=== PATIENT | female | born 1985 | race Hispanic/Latino ===

== ENCOUNTER 2018-04-22 14:54 | Emergency (ER) | payer OTHER ==
[~2018-04-22] VITALS: Ht 160 cm; Wt 65.8 kg
[2018-04-22] MEDS ORDERED: KETOROLAC TROMETHAMINE 30 MG/ML VIAL IV STA (15:51)
[2018-04-22 16:18] LABS: BILIRUBIN,URINE NEGATIVE (NEGATIVE); CLARITY,URINE CLEAR (CLEAR); COLOR,URINE YELLOW (YELLOW); KETONES,URINE NEGATIVE (NEGATIVE); LEUKOCYTE ESTERASE ,URINE NEGATIVE (NEGATIVE); NITRITE,URINE NEGATIVE (NEGATIVE); PROTEIN,URINE DIPSTICK NEGATIVE (NEGATIVE); URINE UROBILINOGEN 0.2 mg/dL (0.2 - 1)
[2018-04-22 16:25] LABS: EPITHELIAL CELLS,URINE FEW /LPF; WBC,URINE (MAN) 0-5 /HPF (0-5)
--- NOTE | 2018-04-22 16:32 | Diagnostic Imaging Report ---
EXAMINATION: CHEST 2 VIEWS INDICATION: Migraine. Cough COMPARISON: None FINDINGS: TUBES and LINES: None. LUNGS: Lungs are well inflated. Lungs are clear. There is no evidence of pneumonia or pulmonary edema. PLEURA: No pleural effusion or pneumothorax. HEART AND MEDIASTINUM: The cardiomediastinal silhouette is unremarkable. BONES AND SOFT TISSUES: No acute osseous lesion. Soft tissues are unremarkable. UPPER ABDOMEN: No free air under the diaphragm. IMPRESSION: No acute thoracic abnormality. Signed by: Dr. Shawn Grover M.D. on 04/22/2018 4:29 PM
[2018-04-22 16:35] LABS: BASOPHILS % 0.4 % (0.0-1.0); EOSINOPHILS # (AUTO) 0.3 (0.0-0.4); EOSINOPHILS % 3.8 % (0.0-6.0); HEMATOCRIT 41.5 % (34.2-44.1); HEMOGLOBIN 13.6 g/dL (12.0-16.0); LYMPHOCYTES # (AUTO) 2.1 (1.0-3.2); LYMPHOCYTES % 28.9 % (18.0-39.1); MEAN CORPUSCULAR HEMOGLOBIN 28.3 pg (28-32); MEAN CORPUSCULAR HGB CONC 32.8 g/dL (31-35); MEAN CORPUSCULAR VOLUME 86.3 fL (81-99); MONOCYTES # (AUTO) 0.4 (0.2-0.8); MONOCYTES % 5.9 % (4.4-11.3); NEUTROPHILS # (AUTO) 4.3 (2.1-6.9); NEUTROPHILS % 60.9 % (38.7-80.0); PLATELET COUNT 294 x10e3/uL (140-360); RED BLOOD COUNT 4.81 x10e6/uL (3.6-5.1); RED CELL DISTRIBUTION WIDTH 13.4 % (11.7-14.4)
--- NOTE | 2018-04-22 16:45 | Diagnostic Imaging Report ---
EXAMINATION: Head CT HISTORY: Severe migraine headaches for the last 3 days COMPARISON: None. TECHNIQUE: Multidetector axial images were obtained without contrast from the foramen magnum to the vertex . The images were reconstructed using brain and bone algorithms. Thin section brain images were reformatted into coronal and sagittal planes. Intravenous contrast: None. Image quality: Motion/streaking artifact limits the evaluation of the skull base and posterior cranial fossa. Dose modulation, iterative reconstruction, and/or weight based adjustment of the mA/kV was utilized to reduce the radiation dose to as low as reasonably achievable. FINDINGS: Parenchyma: 1. No abnormal densities. 2. No mass or hemorrhage. No CT evidence of acute territorial vascular insult. Extra-axial spaces:No abnormal density. No extra-axial fluid collections Brain volume: Normal for age. Ventricles: No hydrocephalus or displacement. Arteries: No density suggestive of thrombus. Dural sinuses: No abnormal density. Extra-axial spaces: No abnormal density. Foramen magnum: No mass, Chiari malformation, or basilar invagination. Sella: No obvious mass. Paranasal/mastoid sinuses: Imaged portions unremarkable. Skull/Scalp: No lytic or blastic lesions. No fractures. IMPRESSION: No intracranial abnormalities, particularly no evidence of hemorrhage. Signed by: Dr. Bernadette Cano M.D. on 04/22/2018 4:41 PM
[2018-04-22 16:54] LABS: ALANINE AMINOTRANSFERASE 18 IU/L (0-55); ALBUMIN 3.7 g/dL (3.5-5.0); ALBUMIN/GLOBULIN RATIO 0.9 (0.8-2.0); ALKALINE PHOSPHATASE 122 IU/L (40-150); ANION GAP 14.4 mmol/L (8-16); BLOOD UREA NITROGEN 7 mg/dL (7-26); BUN/CREATININE RATIO 9 (6-25); CALCIUM 9.5 mg/dL (8.4-10.2); CARBON DIOXIDE 25 mmol/L (22-29); CHLORIDE 105 mmol/L (98-107); CREATININE, SERUM 0.77 mg/dL (0.57-1.11); EST GLOMERULAR FILTRATION RATE > 60 ML/MIN (60-); GLUCOSE 76 mg/dL (74-118); POTASSIUM 3.4 mmol/L (3.5-5.1); SODIUM 141 mmol/L (136-145)
[2018-04-22] MEDS ORDERED: ONDANSETRON HCL INJ 2 MG/ML VIAL IV STA (17:27)
[2018-04-22] MEDS ORDERED: TOPIRAMATE50 MG PO (17:27)
[2018-04-22] MEDS ORDERED: PROAIR HFA INH8.5 GM INH (17:27)
[2018-04-22] MEDS ORDERED: CARAFATE1 GM/10 ML PO (17:27)
[2018-04-22] MEDS ORDERED: PANTOPRAZOLE SO40 MG PO (17:27)
[2018-04-22] MEDS ORDERED: FERROUS SULFAT325 MG PO (17:27)
[2018-04-22] MEDS ORDERED: AMITRIPTYLINE H25 MG PO (17:27)
[2018-04-22] MEDS ORDERED: SERTRALINE HCL100 MG PO (17:27)
[2018-04-22] MEDS ORDERED: GABAPENTIN100 MG PO (17:27)
[2018-04-22] MEDS ORDERED: METOCLOPRAMIDE H5 MG PO (17:27)
[2018-04-22] MEDS ORDERED: DICYCLOMINE HCL20 MG PO (17:27)
[2018-04-22] MEDS ORDERED: HYDROMORPHONE 2MG/ML 2 MG/ML ML IV ONE (17:30)
[2018-04-22 19:42] LABS: APPEARANCE,CSF CLEAR (CLEAR); COLOR,CSF COLORLESS (COLORLESS); TUBE NUMBER 4
[2018-04-22 19:43] LABS: WHITE BLOOD CELL,CSF 1 cells/uL (0-5)
[2018-04-22] MEDS ORDERED: HYDROMORPHONE 1MG/1ML INJ IV NR (20:18)
[2018-04-22 22:40] VITALS: BP 132/80
== END 2018-04-22 22:43 | disposition home or self-care (01) ==
LOC: ER 14:54
DX: R51 Headache (principal); M54.2 Cervicalgia; R11.2 Nausea with vomiting, unspecified; Z87.11 Personal history of peptic ulcer disease
CPT/HCPCS: 36415; 62270; 70450; 71046; 80053; 81001; 85025; 86789; 87070; 87086; 87205; 87400; 87476; 89051; 99283; J1170; J1885; J2405

== ENCOUNTER 2018-04-25 02:38 | Emergency (ER) | payer OTHER ==
[~2018-04-25] VITALS: Ht 160 cm; Wt 65.8 kg
[~2018-04-25 02:38] MED LIST: AMITRIPTYLINE H25 MG PO; CARAFATE1 GM/10 ML PO; DICYCLOMINE HCL20 MG PO; FERROUS SULFAT325 MG PO; GABAPENTIN100 MG PO; METOCLOPRAMIDE H5 MG PO; PANTOPRAZOLE SO40 MG PO; PROAIR HFA INH8.5 GM INH; SERTRALINE HCL100 MG PO; TOPIRAMATE50 MG PO
[2018-04-25] MEDS ORDERED: KETOROLAC TROMETHAMINE 30 MG/ML VIAL IV STA (04:23)
[2018-04-25] MEDS ORDERED: SODIUM CHLORIDE 0.9% 1000ML 1,000 ML IV STA (04:23)
[2018-04-25] MEDS ORDERED: METOCLOPRAMIDE HCL 10 MG/2ML VIAL IV ONE (04:30)
[2018-04-25] MEDS ORDERED: DIPHENHYDRAMINE HCL INJ 50 MG/ML VIAL IV ONE (04:30)
[2018-04-25 04:45] LABS: BASOPHILS % 0.6 % (0.0-1.0); EOSINOPHILS # (AUTO) 0.2 (0.0-0.4); EOSINOPHILS % 3.2 % (0.0-6.0); HEMATOCRIT 43.5 % (34.2-44.1); HEMOGLOBIN 13.9 g/dL (12.0-16.0); LYMPHOCYTES # (AUTO) 2.5 (1.0-3.2); LYMPHOCYTES % 38.4 % (18.0-39.1); MEAN CORPUSCULAR HEMOGLOBIN 27.9 pg (28-32); MEAN CORPUSCULAR VOLUME 87.2 fL (81-99); MONOCYTES # (AUTO) 0.4 (0.2-0.8); MONOCYTES % 5.6 % (4.4-11.3); NEUTROPHILS # (AUTO) 3.4 (2.1-6.9); PLATELET COUNT 297 x10e3/uL (140-360); RED BLOOD COUNT 4.99 x10e6/uL (3.6-5.1); RED CELL DISTRIBUTION WIDTH 13.5 % (11.7-14.4)
[2018-04-25 04:58] LABS: INR 0.82; PROTHROMBIN TIME 12.1 seconds (11.9-14.5)
[2018-04-25 04:59] LABS: PARTIAL THROMBOPLASTIN TIME 33.8 seconds (23.8-35.5)
--- NOTE | 2018-04-25 05:44 | Diagnostic Imaging Report ---
History: Back pain, status post lumbar puncture 3 days ago. Comparison studies: None Technique: Axial images were obtained through the lumbar spine from L1-S1. Coronal and sagittal images reconstructed from the axial data. Dose modulation, iterative reconstruction, and/or weight based adjustment of the mA/kV was utilized to reduce the radiation dose to as low as reasonably achievable. Intravenous contrast: None Findings: The usual 5 non-rib bearing lumbar vertebral bodies are present. Alignment: Normal lordosis. No scoliosis. Soft tissues: Minimal right posterior subcutaneous soft tissue fat stranding at level L4 possibly related to recent intervention. No discrete fluid collection. Paraspinal muscles: Unremarkable. Sacroiliac joints: No degenerative changes. Vertebrae: No fractures, infection or neoplasm. Degenerative changes: No abnormalities. Visualized portion of bilateral sacroiliac joints: No abnormality. IMPRESSION: 1. No acute lumbar spine abnormality. 2. Minimal right posterior subcutaneous soft tissue fat stranding at level L4 possibly related to recent intervention. 3. Ligament, spinal cord and or vascular abnormalities cannot be excluded on the basis of this examination. Signed by: Dr. Tresa Guaman M.D. on 04/25/2018 5:41 AM
[2018-04-25] MEDS ORDERED: SODIUM CHLORIDE 0.9% 50ML 50 ML ONE (05:45)
[2018-04-25] MEDS ORDERED: IOPAMIDOL 370 MG/ML 200 ML INFUS..BTL INJ ONE (05:45)
[2018-04-25] MEDS ORDERED: HYDROCODONE/APAP 10MG-325MG TAB PO ONE (06:45)
== END 2018-04-25 07:25 | disposition home or self-care (01) ==
LOC: ER 02:38
DX: M54.5 Low back pain (principal); K21.9 Gastro-esophageal reflux disease without esophagitis; G40.909 Epilepsy, unspecified, not intractable, without status epilepticus; Z87.11 Personal history of peptic ulcer disease
CPT/HCPCS: 36415; 72132; 81025; 85025; 85610; 85730; 99284; J1200; J1885; J2765; J7030; Q9967